=== PATIENT | male | born 1950 | race African-American/Black ===

== ENCOUNTER 2016-11-14 23:06 | Emergency (ER) | payer MEDICAID, OTHER ==
[~2016-11-14] VITALS: Ht 175.3 cm; Wt 108.0 kg
[2016-11-15] MEDS ORDERED: MORPHINE SULFATE 4 MG/ML CPJ (NOT FOR IM USE) IV STA (01:17)
[2016-11-15] MEDS ORDERED: SODIUM CHLORIDE 0.9% 1,000 ML IV ONE (01:17)
[2016-11-15] MEDS ORDERED: ONDANSETRON HCL 4MG/2ML VIAL IV STA (01:17)
[2016-11-15 01:48] LABS: BASOPHILS % 0.6 % (0.0-2.0); EOSINOPHILS % 0.2 % (0.0-5.0); HEMATOCRIT. 44.6 % (42.0-52.0); HEMOGLOBIN. 15.7 g/dL (14.0-18.0); LYMPHOCYTES % 7.7 % (20.0-50.0); MEAN CORPUSCULAR HEMOGLOBIN 29.7 pg (28.0-32.0); MEAN CORPUSCULAR VOLUME 84.4 fL (80.0-94.0); MEAN PLATELET VOLUME 8.8 fl (7.4-10.4); NEUTROPHILS % 84.5 % (40.0-76.0); PLATELET 163 x1000/uL (130-400); RED BLOOD CELL COUNT 5.29 mill/uL (4.7-6.1); RED CELL DISTRIBUTION WIDTH 12.7 % (11.6-14.6)
[2016-11-15 02:01] LABS: CHLORIDE 101 mEq/L (98-107)
[2016-11-15 02:09] LABS: CARBON DIOXIDE 27 mEq/L (21-32)
[2016-11-15 02:37] LABS: CLARITY URINE CLEAR (CLEAR); COLOR URINE YELLOW (YELLOW); GLUCOSE URINE NEGATIVE (NEGATIVE); KETONES URINE NEGATIVE (NEGATIVE); LEUKOCYTE ESTERASE URINE NEGATIVE (NEGATIVE); NITRITE URINE NEGATIVE (NEGATIVE); OCCULT BLOOD URINE NEGATIVE (NEGATIVE); PROTEIN URINE NEGATIVE (NEGATIVE)
[2016-11-15] MEDS ORDERED: PIPERACILLIN/TAZ 3.375G PREMIX 50 ML IV ONE (03:00)
[2016-11-15] MEDS ORDERED: TAMSULOSIN HCL 0.4MG SR CAPSULE PO ONE (05:30)
[2016-11-15 07:29] VITALS: BP 131/92
== END 2016-11-15 08:06 | disposition home or self-care (01) ==
LOC: ER 23:06
DX: N20.0 Calculus of kidney (principal); I10 Essential (primary) hypertension
CPT/HCPCS: 36415; 71010; 74176; 80053; 81003; 83605; 83690; 85025; 87040; 87086; 96361; 96365; 96375; 99285; J2270; J2405; J2543; J7030; Z7610

== ENCOUNTER 2020-05-31 11:11 | Emergency (ER) | payer MEDICAID, MEDICARE ==
[~2020-05-31] VITALS: Ht 180.3 cm; Wt 109.0 kg
[~2020-05-31 11:11] MED LIST: ATOR10TA PO; BENA20TA10 PO; CEPH-569 PO; HYDR-4009 PO
[2020-05-31 11:31] VITALS: BP 146/103
[2020-05-31 12:30] LABS: CLARITY URINE CLEAR (CLEAR); COLOR URINE YELLOW (YELLOW); KETONES URINE NEGATIVE (NEGATIVE); LEUKOCYTE ESTERASE URINE 2+ (NEGATIVE); NITRITE URINE NEGATIVE (NEGATIVE); OCCULT BLOOD URINE 2+ (NEGATIVE); PH URINE 5.5 (4.5-8.0); PROTEIN URINE TRACE (NEGATIVE); SPECIFIC GRAVITY URINE 1.016 (1.005-1.030); UROBILINOGEN URINE 0.2 E.U./dL (0.2-1.0)
[2020-05-31 14:15] LABS: BASOPHILS % 0.5 % (0.0-2.0); HEMATOCRIT. 46.2 % (42.0-52.0); HEMOGLOBIN. 15.5 g/dL (14.0-18.0); MEAN CORPUSCULAR HEMOGLOBIN 29.1 pg (28.0-32.0); MEAN CORPUSCULAR VOLUME 86.6 fL (80.0-94.0); MEAN PLATELET VOLUME 8.5 fl (7.4-10.4); MONOCYTES % 9.9 % (2.0-8.0); NEUTROPHILS % 73.6 % (40.0-76.0); PLATELET 235 x1000/uL (130-400); RED BLOOD CELL COUNT 5.33 mill/uL (4.7-6.1); RED CELL DISTRIBUTION WIDTH 12.4 % (11.6-14.6)
[2020-05-31 14:17] LABS: CHLORIDE 103 mEq/L (98-107)
[2020-05-31 14:24] LABS: BETA HYDROXYBUTYRATE 0.1 mMol/L (0.0-0.3)
[2020-05-31] MEDS ORDERED: CIPR-213 MT (14:54)
== END 2020-05-31 15:41 | disposition home or self-care (01) ==
LOC: ER 11:27
DX: N39.0 Urinary tract infection, site not specified (principal); U07.1 COVID-19; I10 Essential (primary) hypertension; Z79.899 Other long term (current) drug therapy; Z98.890 Other specified postprocedural states
CPT/HCPCS: 36415; 80048; 81003; 82010; 85025; 87077; 87086; 87186; 99283; C9803; U0003

== ENCOUNTER 2020-06-07 14:13 | Emergency (ER) | payer MEDICARE ==
[~2020-06-07] VITALS: Ht 180.3 cm; Wt 104.0 kg
[~2020-06-07 14:13] MED LIST changes: +CIPR-213 MT
[2020-06-07] MEDS ORDERED: TAMS-11 MT (14:46)
[2020-06-07 14:56] VITALS: BP 136/83
== END 2020-06-07 14:56 | disposition home or self-care (01) ==
LOC: ER 14:13
DX: N40.0 Benign prostatic hyperplasia without lower urinary tract symptoms (principal); I10 Essential (primary) hypertension
CPT/HCPCS: 99283

== ENCOUNTER 2021-02-13 16:27 | Inpatient (IN) | payer MEDICARE, OTHER ==
[~2021-02-13] VITALS: Ht 180.3 cm; Wt 102.5 kg
[~2021-02-13 16:27] MED LIST changes: -CIPR-213 MT; +CIPR500T5 MT; +TAMS-11 MT
[2021-02-13 19:19] LABS: EOSINOPHILS % 6.4 % (0.0-5.0); HEMATOCRIT. 44.8 % (42.0-52.0); HEMOGLOBIN. 15.1 g/dL (14.0-18.0); MEAN CORPUSCULAR HEMOGLOBIN 29.7 pg (28.0-32.0); MEAN CORPUSCULAR VOLUME 87.9 fL (80.0-94.0); MEAN PLATELET VOLUME 8.9 fl (7.4-10.4); MONOCYTES % 9.2 % (2.0-8.0); NEUTROPHILS % 40.4 % (40.0-76.0); PLATELET 178 x1000/uL (130-400); RED CELL DISTRIBUTION WIDTH 12.8 % (11.6-14.6)
[2021-02-13 19:30] LABS: CHLORIDE 107 mEq/L (98-107)
[2021-02-13 20:14] LABS: CLARITY URINE CLEAR (CLEAR); COLOR URINE YELLOW (YELLOW); KETONES URINE NEGATIVE (NEGATIVE); LEUKOCYTE ESTERASE URINE NEGATIVE (NEGATIVE); NITRITE URINE NEGATIVE (NEGATIVE); OCCULT BLOOD URINE NEGATIVE (NEGATIVE); PROTEIN URINE NEGATIVE (NEGATIVE); SPECIFIC GRAVITY URINE 1.005 (1.005-1.030); UROBILINOGEN URINE 0.2 E.U./dL (0.2-1.0)
[2021-02-13] MEDS ORDERED: ASPIRIN 81MG TABLET PO ONE (20:30)
[2021-02-14] VITALS (7 sets, daily range): BP systolic 115–142; BP diastolic 59–96
[2021-02-14] MEDS ORDERED: LOSA100T32 PO (01:02)
[2021-02-14] MEDS ORDERED: AMLO10TA4 PO (01:03)
[2021-02-14] MEDS ORDERED: METO25TA6 PO (01:05)
[2021-02-14] MEDS ORDERED: ENOXAPARIN 40MG/0.4ML SYR SUBCUT SCH (09:00)
[2021-02-14] MEDS ORDERED: ENOXAPARIN 30MG/0.3ML SYR SUBCUT SCH (09:00)
[2021-02-14] MEDS ORDERED: BENAZEPRIL 10MG TABLET PO SCH (09:00)
[2021-02-14] MEDS: ASPIRIN 81MG TABLET PO SCH (09:04)
[2021-02-14] MEDS: LOSARTAN POTASSIUM 100 MG TABLET PO SCH (09:04)
[2021-02-14] MEDS: METOPROLOL TARTRATE 25MG TABLET PO SCH (09:04)
[2021-02-14] MEDS: AMLODIPINE 10MG TABLET PO SCH (09:04)
[2021-02-14] MEDS: TAMSULOSIN HCL 0.4MG SR CAPSULE PO SCH (09:04)
[2021-02-14 10:26] LABS: BASOPHILS % 0.8 % (0.0-2.0); EOSINOPHILS % 5.7 % (0.0-5.0); HEMATOCRIT. 46.6 % (42.0-52.0); HEMOGLOBIN. 15.6 g/dL (14.0-18.0); LYMPHOCYTES % 29.7 % (20.0-50.0); MEAN CORPUSCULAR HEMOGLOBIN 29.4 pg (28.0-32.0); MEAN PLATELET VOLUME 9.7 fl (7.4-10.4); MONOCYTES % 6.1 % (2.0-8.0); NEUTROPHILS % 57.7 % (40.0-76.0); PLATELET 179 x1000/uL (130-400)
[2021-02-14 10:31] LABS: CHLORIDE 108 mEq/L (98-107)
[2021-02-14 10:43] LABS: CREATINE KINASE 119 IU/L (39-308)
[2021-02-14 10:45] LABS: CREATINE KINASE MB FRACTION 2.2 ng/mL (0.5-3.6)
[2021-02-14 12:11] LABS: *AMPHETAMINES SCREEN URINE NEGATIVE (NEGATIVE); *BARBITURATES SCREEN URINE NEGATIVE (NEGATIVE); *BENZODIAZEPINES SCREEN URINE NEGATIVE (NEGATIVE); *COCAINE SCREEN URINE NEGATIVE (NEGATIVE); METHADONE URINE SCREEN NEGATIVE (NEGATIVE); OPIATES URINE SCREEN NEGATIVE (NEGATIVE)
[2021-02-14 12:12] LABS: CANNABINOID URINE SCREEN NEGATIVE (NEGATIVE); PHENCYCLIDINE URINE SCREEN NEGATIVE (NEGATIVE)
[2021-02-14 12:17] LABS: T4 FREE 1.13 ng/dL (0.76-1.46)
[2021-02-14] MEDS ORDERED: REGADENOSON 0.4 MG/5 ML IV ONE (15:00)
[2021-02-14 16:32] LABS: CREATINE KINASE 122 IU/L (39-308)
[2021-02-14 16:35] LABS: CREATINE KINASE MB FRACTION 1.6 ng/mL (0.5-3.6)
[2021-02-14] MEDS ORDERED: ENOXAPARIN 30MG/0.3ML SYR SUBCUT NR (21:00)
[2021-02-15 00:01] VITALS: BP 119/68
[2021-02-15 04:00] VITALS: BP 121/63
[2021-02-15 06:37] LABS: BASOPHILS % 0.8 % (0.0-2.0); EOSINOPHILS % 5.7 % (0.0-5.0); HEMOGLOBIN. 15.3 g/dL (14.0-18.0); LYMPHOCYTES % 34.1 % (20.0-50.0); MEAN CORPUSCULAR HEMOGLOBIN 29.3 pg (28.0-32.0); MEAN CORPUSCULAR VOLUME 87.7 fL (80.0-94.0); MEAN PLATELET VOLUME 9.5 fl (7.4-10.4); MONOCYTES % 11.3 % (2.0-8.0); NEUTROPHILS % 48.1 % (40.0-76.0); PLATELET 185 x1000/uL (130-400); RED BLOOD CELL COUNT 5.24 mill/uL (4.7-6.1); RED CELL DISTRIBUTION WIDTH 13.5 % (11.6-14.6)
[2021-02-15 06:49] LABS: CHLORIDE 107 mEq/L (98-107)
[2021-02-15 07:00] LABS: CREATINE KINASE 101 IU/L (39-308)
[2021-02-15 07:02] LABS: CREATINE KINASE MB FRACTION 1.3 ng/mL (0.5-3.6)
[2021-02-15 08:00] VITALS: BP 106/74
[2021-02-15] MEDS: TAMSULOSIN HCL 0.4MG SR CAPSULE PO SCH (08:28)
[2021-02-15] MEDS: ASPIRIN 81MG TABLET PO SCH (08:28)
[2021-02-15] MEDS: METOPROLOL TARTRATE 25MG TABLET PO SCH (08:29)
[2021-02-15] MEDS: LOSARTAN POTASSIUM 100 MG TABLET PO SCH (08:29)
[2021-02-15] MEDS: AMLODIPINE 10MG TABLET PO SCH (08:29)
[2021-02-15] MEDS ORDERED: REGADENOSON 0.4 MG/5 ML IV ONE (09:34)
[2021-02-15 11:50] VITALS: BP 102/55
[2021-02-15 12:00] VITALS: BP 102/55
[2021-02-15] MEDS ORDERED: ONDANSETRON HCL 4MG/2ML INJ IV PRN (13:00)
[2021-02-15 16:00] VITALS: BP 109/68
[2021-02-15] MEDS ORDERED: METOPROLOL TARTRATE 25MG TABLET PO SCH (17:00)
== END 2021-02-15 17:35 | disposition home or self-care (01) | DRG 309 ==
LOC: ER 16:27 → EDBEDREQTM 21:56 → EDBEDREQ 21:56 → ENRESERV 23:35 → 7EST 02-14 00:18
PROVIDERS: ADMIT Internal Medicine; ATTEND Internal Medicine
DX: I49.3 Ventricular premature depolarization (principal); N17.9 Acute kidney failure, unspecified; E78.5 Hyperlipidemia, unspecified; I11.0 Hypertensive heart disease with heart failure; I50.9 Heart failure, unspecified; I49.1 Atrial premature depolarization; N40.0 Benign prostatic hyperplasia without lower urinary tract symptoms; F17.200 Nicotine dependence, unspecified, uncomplicated; Z20.822 Contact with and (suspected) exposure to COVID-19; I08.1 Rheumatic disorders of both mitral and tricuspid valves; I95.9 Hypotension, unspecified; N28.9 Disorder of kidney and ureter, unspecified; Z87.442 Personal history of urinary calculi; Z87.01 Personal history of pneumonia (recurrent); Z86.16 Personal history of COVID-19; Z79.899 Other long term (current) drug therapy
CPT/HCPCS: 36415; 71045; 78452; 80048; 80053; 80305; 81003; 82550; 82553; 83735; 83880; 84439; 84443; 84481; 84484; 85025; 87426; 93005; 93017; 93306; 99285; A9500; C1893; J1650; J2785

== ENCOUNTER 2021-09-05 13:17 | Emergency (ER) | payer MEDICARE, OTHER ==
[~2021-09-05] VITALS: Ht 185.4 cm; Wt 89.0 kg
[~2021-09-05 13:17] MED LIST changes: +AMLO10TA4 PO; +LOSA100T32 PO; +METO25TA6 PO
[2021-09-05 14:38] LABS: BASOPHILS % 0.6 % (0.0-2.0); EOSINOPHILS % 0.8 % (0.0-5.0); HEMATOCRIT. 43.7 % (42.0-52.0); HEMOGLOBIN. 14.6 g/dL (14.0-18.0); LYMPHOCYTES % 15.3 % (20.0-50.0); MEAN CORPUSCULAR HEMOGLOBIN 29.2 pg (28.0-32.0); MEAN CORPUSCULAR VOLUME 87.1 fL (80.0-94.0); MEAN PLATELET VOLUME 8.9 fl (7.4-10.4); MONOCYTES % 8.3 % (2.0-8.0); PLATELET 182 x1000/uL (130-400); RED BLOOD CELL COUNT 5.02 mill/uL (4.7-6.1); RED CELL DISTRIBUTION WIDTH 12.9 % (11.6-14.6)
[2021-09-05 14:48] LABS: CHLORIDE 106 mEq/L (98-107)
[2021-09-05] MEDS ORDERED: KETOROLAC 60MG/2ML VIAL IM ONE (16:00)
[2021-09-05 16:29] VITALS: BP 129/86
[2021-09-05 17:27] LABS: CLARITY URINE CLEAR (CLEAR); COLOR URINE YELLOW (YELLOW); KETONES URINE NEGATIVE (NEGATIVE); LEUKOCYTE ESTERASE URINE NEGATIVE (NEGATIVE); NITRITE URINE NEGATIVE (NEGATIVE); OCCULT BLOOD URINE NEGATIVE (NEGATIVE); PH URINE 5.5 (4.5-8.0); PROTEIN URINE NEGATIVE (NEGATIVE); SPECIFIC GRAVITY URINE 1.021 (1.005-1.030)
[2021-09-05] MEDS ORDERED: IBUP-2028 MT (17:50)
== END 2021-09-05 18:52 | disposition home or self-care (01) ==
LOC: ER 13:17
DX: R10.31 Right lower quadrant pain (principal); I10 Essential (primary) hypertension; Z79.899 Other long term (current) drug therapy
CPT/HCPCS: 36415; 74176; 80053; 81003; 83690; 85025; 96372; 99284; J1885

== ENCOUNTER 2022-02-26 09:39 | Emergency (ER) | payer MEDICARE ==
[~2022-02-26] VITALS: Ht 177.8 cm; Wt 80.0 kg
[~2022-02-26 09:39] MED LIST changes: +BENA-8 PO; -BENA20TA10 PO; +IBUP-2028 MT
[2022-02-26] MEDS ORDERED: MORPHINE SULFATE 4 MG/ML CPJ (NOT FOR IM USE) IV ONE (10:15)
[2022-02-26 11:30] LABS: BASOPHILS % 0.5 % (0.0-2.0); EOSINOPHILS % 2.3 % (0.0-5.0); HEMATOCRIT. 41.9 % (42.0-52.0); HEMOGLOBIN. 14.3 g/dL (14.0-18.0); LYMPHOCYTES % 23.6 % (20.0-50.0); MEAN CORPUSCULAR HEMOGLOBIN 29.8 pg (28.0-32.0); MEAN CORPUSCULAR VOLUME 87.5 fL (80.0-94.0); MEAN PLATELET VOLUME 8.5 fl (7.4-10.4); MONOCYTES % 12.7 % (2.0-8.0); NEUTROPHILS % 60.9 % (40.0-76.0); PLATELET 174 x1000/uL (130-400); RED BLOOD CELL COUNT 4.78 mill/uL (4.7-6.1); RED CELL DISTRIBUTION WIDTH 13.3 % (11.6-14.6)
[2022-02-26 11:34] LABS: INR 1.1; PROTHROMBIN TIME 11.3 sec (9.6-11.0)
[2022-02-26 12:10] LABS: CHLORIDE 106 mEq/L (98-107)
[2022-02-26] MEDS ORDERED: IOHEXOL-350 100 ML BOTTLE ONE (13:22)
[2022-02-26] MEDS ORDERED: T3 PO (14:16)
[2022-02-26] MEDS ORDERED: IBUP-2028 PO (14:16)
[2022-02-26 14:49] VITALS: BP 139/92
== END 2022-02-26 14:48 | disposition home or self-care (01) ==
LOC: ER 09:39
DX: M54.2 Cervicalgia (principal); M79.672 Pain in left foot; I10 Essential (primary) hypertension; Z87.442 Personal history of urinary calculi; W17.89XA Other fall from one level to another, initial encounter; Y93.89 Activity, other specified; Y92.018 Other place in single-family (private) house as the place of occurrence of the external cause
CPT/HCPCS: 36415; 70498; 72125; 73590; 73630; 74176; 80053; 85025; 85610; 96374; 99285; J2270; Q9967